=== PATIENT | male | born 2000 | race Two or more races ===

== ENCOUNTER 2024-01-30 11:33 | Emergency (ER) | payer MEDICAID, OTHER ==
[~2024-01-30] VITALS: Ht 172.7 cm; Wt 104.6 kg
[2024-01-30] MEDS: methylPREDNISolone SOD SUCC 125 MG/2 ML VL IM ONE (12:15)
[2024-01-30] MEDS: cefTRIAXone SOD 1,000 MG VL IM ONE (12:15)
[2024-01-30] MEDS ORDERED: IBUP-1454 PO (12:37)
[2024-01-30] MEDS ORDERED: AMOX875T3 PO (12:37)
[2024-01-30 12:52] VITALS: BP 120/79; PULSE 90; RESP 19; TEMP 98.7; O2SAT 98
== END 2024-01-30 12:55 | disposition home or self-care (01) ==
LOC: ER 11:33
DX: J03.90 Acute tonsillitis, unspecified (principal); H66.93 Otitis media, unspecified, bilateral
CPT/HCPCS: 96372; 99284; J0696; J2919

== ENCOUNTER 2024-07-13 08:31 | Day surgery (SDC) | payer MEDICAID ==
[2024-07-11 15:04] LABS: Urine Bacteria None Seen /hpf (None Seen)
[2024-07-11 15:06] LABS: Basophils # (auto) 0 10 ^3/uL (0-0.2); Basophils % (auto) 0.4 % (0.0-2.0); Eosinophils # (auto) 0.3 10 ^3/uL (0-0.8); Eosinophils % (auto) 3.1 % (0.0-7.0); Hematocrit 45.9 % (41.0-53.0); Hemoglobin 15.9 g/dL (13.5-17.5); Lymphocytes # (auto) 3.4 10 ^3/uL (0.4-5.4); Lymphocytes % (auto) 32.4 % (10.0-50.0); Mean Corpuscular Hemoglobin 28.8 pg (28.0-32.0); Mean Corpuscular Hgb Conc. 34.6 g/dL (32.0-36.0); Mean Corpuscular Volume 83.2 fL (80.0-100.0); Monocytes # (auto) 0.8 10 ^3/uL (0-1.3); Monocytes % (auto) 7.2 % (0.0-12.0); Neutrophils % (auto) 56.9 % (37.0-80.0); Nucleated Red Blood Cells % 0.3 %; Platelet Count (auto) 288 10^3/uL (140-450); Red Blood Cells 5.51 10^6/uL (4.5-5.90); White Blood Cell 10.6 10^3/uL (4.4-10.8)
[2024-07-11 15:14] LABS: Urine Blood Negative /uL (Negative); Urine Clarity Clear (Clear); Urine Color Colorless (Yellow); Urine Protein, UAD Negative (Negative); Urine Specific Gravity 1.009 (1.001-1.035); Urine Squamous Epithelial Cell FEW /hpf (<5); Urine Urobilinogen Normal (Negative); Urine WBC 1 /hpf (0 - 3); Urine pH 5.5 (5.0-9.0)
[2024-07-11 15:20] LABS: INR 1.02 (0.9-1.15); Partial Thromboplastin Time 26.1 SEC (24.5-34.5); Prothrombin Time 10.8 sec (9.3-11.8)
[2024-07-11 15:35] LABS: Alkaline Phosphatase 87 U/L (46-116); Anion Gap 7 (5-15); Aspartate Aminotransferase 36 U/L (13-40); BUN/Creatinine Ratio 13.8 (10.0-20.0); Bilirubin, Total 0.4 mg/dL (0.2-1.0); Carbon Dioxide 28 mmol/L (20-31); Chloride 104 mmol/L (98-107); Sodium 139 mmol/L (136-145); Total Protein 7.8 g/dL (5.7-8.2)
[2024-07-11 15:41] LABS: Alanine Aminotransferase 86 U/L (7-40); Albumin 4.9 g/dL (3.2-4.8); Blood Urea Nitrogen 8 mg/dL (9-23); Calcium 10.6 mg/dL (8.7-10.4); Glucose 108 mg/dL (74-106)
[~2024-07-13] VITALS: Ht 172.7 cm; Wt 110.2 kg
[~2024-07-13 08:31] MED LIST: ACET-1304 PO
[2024-07-13] MEDS ORDERED: GLYCOPYRROLATE 0.2 MG/ML 1ML VIAL ONE (08:39)
[2024-07-13] MEDS ORDERED: LIDOCAINE 2% (LOCAL ANESTH.) PF 5ml SDV ONE (08:39)
[2024-07-13] MEDS ORDERED: DexAMETHasone SOD PHOS 10MG/1ML VIAL INJ ONE (08:39)
[2024-07-13] MEDS ORDERED: KETOROLAC TROMETH 30 MG/ML 1ML VIAL ONE (08:39)
[2024-07-13] MEDS ORDERED: ePHEDrine SULFATE 50 MG/ML AMP ONE (08:39)
[2024-07-13] MEDS ORDERED: MIDAZOLAM HCL 2MG/2ML 2ml VIAL (1mg/ml) ONE (08:39)
[2024-07-13] MEDS ORDERED: HYDROmorphone HCL 2 MG/ML VL/or syr ONE (08:39)
[2024-07-13] MEDS ORDERED: PROPOFOL 10 MG/ML 20 ML IV ONE (08:39)
[2024-07-13] MEDS ORDERED: fentaNYL CITRATE 100 MCG/2 ML VL ONE (08:39)
[2024-07-13] MEDS ORDERED: ONDANSETRON HCL 4 MG/2 ML VIAL ONE (08:39)
[2024-07-13 08:41] VITALS: PULSE 97; RESP 15; O2SAT 99
[2024-07-13] MEDS ORDERED: ceFAZolin 2 GM/D5W100ml 100 ML IV ONE (08:42)
--- NOTE | 2024-07-13 09:20 | DVHHP2 ---
History Allergies: Coded Allergies: NO KNOWN ALLERGIES (Unverified , 01/30/24) Chief Complaint: Right forearm pain , deformity s/p mechanical fall, no LOC , hit head no LOC, fall 2 weeks ago, preseneted to [facility], placed in splint, given keflex for facial lac Present Illness(Onset/Duration 23M, right forearm pain deformity s/p fall 2 wks ago, presented to [facility] ER, placed in splint Past Surgical History none Medications none Physical Exam Skin intact Chest and Lungs CTA B Heart RRR neg MRG Abdomen NBS ND NT Extremities Right forearm, NVI, ROM not assessed due to fracture, skin intact, mod swelling, pain with palpation M3 D3 forearm Impressions/Description 23M, Right both bones forearm fracture cleared for surgery scheduled for ORIF of right both bones forearm fracture Plan ORIF R both bones forearm fracture OLEG KNIGHT MD Jul 13, 2024 09:20
[2024-07-13] MEDS: LIDOCAINE W/ EPINEPHRINE 1% 20ML VIAL ONE (09:48)
[2024-07-13 10:57] VITALS: TEMP 97.4
[2024-07-13] MEDS ORDERED: ONDANSETRON HCL 4 MG/2 ML VIAL IV ONE (11:15)
--- NOTE | 2024-07-13 11:18 | DVH ---
C-ARM FLUOROSCOPY: PROCEDURE: orif wrist FLUOROSCOPY TIME: 7.4 sec
--- NOTE | 2024-07-13 11:19 | DVH ---
C-ARM FLUOROSCOPY: PROCEDURE: orif wrist FLUOROSCOPY TIME: 7.4 sec
[2024-07-13] MEDS: HYDROmorphone HCL 2 MG/ML VL/or syr IV PRN (11:29)
--- NOTE | 2024-07-13 11:49 | DVHOP2 ---
Operative Report - 2 Report Details Date: 07/13/24 Preop Diagnosis: Right both bones forearm fracture Postop Diagnosis: same Surgeon: Porfirio Knight MD Hired Worker: none Anesthesiologist: Dr Peace Anesthesia: General Drains: none Implant: plates, one radial, one ulnar Consent: The patient was informed of the risks and benefits of the procedure. These include but are not limited to complications of anesthesia, postoperative infection, incomplete relief of symptoms, recurrence of symptoms, damage to blood vessels, nerves and tendons, deep venous thrombosis, pulmonary embolism and possible need for repeat surgery in the future. Complications: none Estimated Blood Loss: 75cc Fluids: 500 cc crystalloid Findings: right both bones forearm fracture Indications for Surgery: unstable fracture pattern with high risk for non-union mal-union without fixation Name of Procedure Performed Right forearm, open reduction internal fixation of radius and ulna Procedure Details Procedure Details: Patient brought in the operating room received Ancef 2 g IV piggyback preoperatively general anesthesia LMA nonsterile tourniquet right arm sterile prep and drape right arm below tourniquet time out performed confirmation right side correct side ORIF of right radius and ulna correct procedure after review of operative consent history and physical my initials and right forearm are pre sent in the operating room agreeing right side correct site or if right for forearm radius and ulna correct procedure exsanguination with Esmarch tourniquet elevated to 250 mm of mercury total tourniquet time 40 minutes longitudinal incision made over FCR sharp dissection through skin down to subcutaneous tissue blunt dissection down to deep fascia deep fascia divided flexor carpi radialis median nerve retracted and flipped common flexors retracted ulnarly radial artery brachioradialis retracted radially exposing volar aspect of the radial shaft subperiosteal elevation to further expose volar aspect radial shaft and fixation with three bicortical screws proximally and distally with a eight hole plate then attention addressed to the ulna longitudinal incision made on the ulnar aspect of forearm and eight hole plate placed across comminuted fracture ulna longitudinal incision on the ulnar shaft or forearm subcutaneous blunt dissection down to deep fascia deep fascia divided blunt dissection between flexor and extensor compartments specifically between flexor carpi ulnaris and extensor carpi ulnaris and the plate placed on the volar aspect of the radial shaft serum fluoro showed anatomic alignment of fractures tourniquet let down excellent hemostasis noted subcutaneous closure 2-0 Vicryl skin tyler fluffs ABD longer ours single sugar-tong splint follow up ortho two weeks TERENCE Epstein thinking much Specimen: none Condition Stable Disposition Home PORFIRIO KNIGHT MD Jul 13, 2024 11:49
[2024-07-13] MEDS ORDERED: ONDANSETRON HCL 4 MG/2 ML VIAL IV PRN (12:00)
[2024-07-13] MEDS ORDERED: D5W/SOD CHL 0.45%/KCL 20MEQ 1,000 ML IV SCH (12:00)
[2024-07-13] MEDS: ACETAMINOPHEN IV 1000 MG/100ML (10MG/ML) IV ONE (12:20)
[2024-07-13 12:30] VITALS: BP 143/89; PULSE 97; RESP 18; O2SAT 95
== END 2024-07-13 12:50 | disposition home or self-care (01) ==
LOC: SUR 08:31
PROVIDERS: ATTEND Orthopaedic Surgery
DX: S52.251A Displaced comminuted fracture of shaft of ulna, right arm, initial encounter for closed fracture (principal); S52.391A Other fracture of shaft of radius, right arm, initial encounter for closed fracture; Z88.0 Allergy status to penicillin; X58.XXXA Exposure to other specified factors, initial encounter; Y93.89 Activity, other specified; Y92.89 Other specified places as the place of occurrence of the external cause; Y99.8 Other external cause status
CPT/HCPCS: 25575; 36415; 73100; 80053; 81001; 85025; 85610; 85730; C1713; J1100; J1171; J1885; J2003; J2250; J2405; J2704; J3010; 76000; J0131